=== PATIENT | female | born 1990 | race African-American/Black ===

== ENCOUNTER 2017-08-03 02:02 | Emergency (ER) | payer MEDICAID ==
[2017-08-03] MEDS ORDERED: LORAZEPAM INJ 2 MG/1 ML VIAL IM ONE (02:19)
[2017-08-03] MEDS ORDERED: LORAZEPAM INJ 2 MG/1 ML VIAL ONE (02:19)
--- NOTE | 2017-08-03 02:22 | ER Document Report ---
ED General - General Chief Complaint: Anxiety Stated Complaint: ANXIETY Time Seen by Provider: 08/03/17 02:16 Notes: Patient is a 26-year-old female has a history of severe anxiety who has panic attacks every night. She takes Ativan and hydroxyzine for panic attacks. Tonight she had 3 drinks and started having a panic attack but did not take her medications because she had some alcohol and she did not want mixing with alcohol. Her panic attack continue to get worse and worse to her significant other brought her to the ER. Patient is now shaking and clenched up very anxious appearing. She is hyperventilating. She will not answer questions verbally but when I ask her how many drinks she had she holds up 3 fingers. Patient's significant other denies any other further complaints or concerns at this time. TRAVEL OUTSIDE OF THE [place] IN LAST 30 DAYS: No - Related Data Allergies/Adverse Reactions: No Known Allergies Allergy (Unverified 08/03/17 02:04) Past Medical History - Social History Smoking Status: Unknown if Ever Smoked Frequency of alcohol use: Occasional Drug Abuse: None Family History: Reviewed & Not Pertinent Review of Systems - Review of Systems -: Yes ROS unobtainable due to patient's medical condition - Patient unable to talk at this time due to panic attack and hyperventilatio Physical Exam - Vital signs Vitals: Temp Pulse Resp BP Pulse Ox 97.7 F 91 20 123/67 100 08/03/17 02:08 08/03/17 02:08 08/03/17 02:08 08/03/17 02:08 08/03/17 02:08 - Notes Notes: General Appearance: Patient is lying in bed awake but hyperventilating and shaking very anxious appearing. Her significant other is holding onto her. Vitals: reviewed, See vital signs table. Head: no swelling or tenderness to the head Eyes: PERRL, EOMI, Conjuctiva clear Mouth: No decreasd moisture Throat: No tonsillar inflammation, No airway obstruction, No lymphadenopathy Neck: Supple, no neck tenderness, No thyromegaly Lungs: No wheezing, No rales, No rhonci, No accessory muscle use, good air exchange bilaterally. Heart: Normal rate, Regular rythm, No murmur, no rub Abdomen: Normal BS, soft, No rigidity, No abdominal tenderness, No guarding, no rebound, no abdominal masses, no organomegaly Extremities: strength 5/5 in all extremities, good pulses in all extremities, no swelling or tenderness in the extremities, no edema. Skin: warm, dry, appropriate color, no rash Neuro: speech clear, oriented x 3, normal affect, responds appropriately to questions. Course - Re-evaluation Re-evalutation: 08/03/17 03:08 I reevaluated the patient. Her panic attack seems to be resolved. She is now able sit up and talk to me. She says that she has a weird feeling in her heart feels like her heart beats funny before the pain contacts. She says even though her panic attack is over now she still feels as if her heart is beating funny. She has an EKG done at the ER needed. She was told this is normal. She also had a chest x-ray which is normal. She never followed up with a psychiatrist or psychologist. She was placed on Celexa once by the ER but says it made things worse. She says her symptoms have been ongoing for over a month. I still suspect that this is all stress anxiety related. I told her I would do an EKG and place her on a monitor being that she feels that her heart is still doing the "weird feeling. I will also draw electrolytes to make sure she does not have a serious I of normality. 08/03/17 06:04 Electrolytes were normal except for just mild hypokalemia. It is not to the extent that would cause any type of arrhythmia. Her EKG was normal appearing except for just mild QT interval prolongation. Again this is similar to the extent where she because any type of arrhythmia. I informed her that the palpitations that she is feeling well for panic attack most likely are related to the impending panic attack. I encouraged her follow-up with the primary care doctor. She is from [place]. I encouraged her to call and find a primary care doctor in the area and also psychiatrist to follow-up with to discuss further medication treatment that will help prevent panic attacks that this does not happen. Encouraged her return to ER if she has recurrence of her symptoms or feels unwell. Patient agrees with plan and will be discharged home. Dictation of this chart was performed using voice recognition software; therefore, there may be some unintended grammatical errors. - Vital Signs Vital signs: Temp Pulse Resp BP Pulse Ox 97.7 F 91 16 120/76 99 08/03/17 02:08 08/03/17 02:08 08/03/17 05:01 08/03/17 05:01 08/03/17 05:01 - Laboratory Result Diagrams: 08/03/17 03:50 Laboratory results interpreted by me: 08/03/17 03:50 Potassium 3.5 L Chloride 110 H Discharge - Discharge Clinical Impression: Panic attack Condition: Good Disposition: HOME, SELF-CARE Instructions: Anxiety ([facility]) Additional Instructions: Please make an appointment to see a primary care physician in your home town. You should also follow up with a psychiatrist and discuss with them other treatment options to help prevent the panic attacks. Return to the ER if you have recurrence of panic attack not relieved by your medications, palpitations not improving, or if you feel unwell.
[2017-08-03 04:12] LABS: ANION GAP 9 (5-19); BLOOD UREA NITROGEN 8 mg/dL (7-20); CALCIUM 9.3 mg/dL (8.4-10.2); CARBON DIOXIDE 26 mmol/L (22-30); CHLORIDE 110 mmol/L (98-107); CREATININE RESULT 0.56 mg/dL (0.52-1.25); GLUCOSE 91 mg/dL (75-110); MAGNESIUM 1.8 mg/dL (1.6-2.3); POTASSIUM 3.5 mmol/L (3.6-5.0); SODIUM 144.6 mmol/L (137-145)
[2017-08-03] MEDS ORDERED: POTASSIUM CHLORIDE 10 MEQ TABLET.SA PO ONE (05:08)
[2017-08-03 05:20] VITALS: BP 120/76
--- NOTE | 2017-08-03 10:17 | EKG REPORT ---
SEVERITY:- BORDERLINE ECG - SINUS RHYTHM BORDERLINE PROLONGED QT INTERVAL : Confirmed by: Justina Conroy 03-Aug-2017 10:17:04
== END 2017-08-03 05:56 | disposition home or self-care (01) ==
LOC: ER 02:02
DX: F41.0 Panic disorder [episodic paroxysmal anxiety] (principal); R00.2 Palpitations; E87.6 Hypokalemia; Z79.899 Other long term (current) drug therapy
CPT/HCPCS: 93005; 99284; 96372; 36415; 83735; 80048; 93010; J2060